=== PATIENT | male | born 1960 ===

== ENCOUNTER 2018-07-29 08:45 | Emergency (ER) | payer MEDICAID, OTHER ==
[2018-07-29] MEDS ORDERED: Multivitamin (MVI) 10 ML, Thiamine 100 MG, Folic Acid 1 MG in Dextrose 5%/0.45% NS 1,00... IV ONE ×2 (09:41→11:30)
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
[2018-07-29 10:29] LABS: SQUAMOUS EPITHIAL < 1 /hpf (0-5); URINE BILIRUBIN NEGATIVE (NEGATIVE); URINE BLOOD SMALL (NEGATIVE); URINE CLARITY CLEAR (Clear); URINE COLOR YELLOW (YELLOW); URINE GLUCOSE (UA) NEG (Normal); URINE LEUKOCYTE ESTERASE NEG Leu/uL (Negative); URINE PROTEIN NEGATIVE (NEGATIVE); URINE UROBILINOGEN 0.2-1.0 mg/dL (0.2-1.0)
[2018-07-29 10:31] LABS: BASO % 0.9 % (0.0-2.0); EOS # 0.2 K/uL (0.0-0.7); LYMPH # 0.6 K/uL (1.0-4.3); LYMPH % 15.5 % (20.0-40.0); MEAN CELL VOLUME 98.3 fl (80.0-94.0); MEAN CORPUSCULAR HEMOGLOBIN 32.3 pg (27.0-31.0); MEAN CORPUSCULAR HGB CONC 32.9 g/dL (33.0-37.0); MEAN PLATELET VOLUME 9.3 fl (7.2-11.7); MONO # 0.5 K/uL (0.0-0.8); MONO % 11.1 % (0.0-10.0); NEUT # 2.8 K/uL (1.8-7.0); NEUT % 68.5 % (50.0-75.0); NRBC % 0.3 % (0.0-0.0); RBC 4.65 Mil/uL (4.40-5.90); RED CELL DISTRIBUTION WIDTH 13.7 % (11.5-14.5); WHITE BLOOD COUNT 4.2 K/uL (4.8-10.8)
[2018-07-29 10:58] LABS: BARBITURATES, UR NEGATIVE (NEGATIVE); BENZODIAZEPINES, UR NEGATIVE (NEGATIVE); OPIATES, UR NEGATIVE (NEGATIVE); PHENCYCLIDINE, UR NEGATIVE (NEGATIVE)
[2018-07-29 11:07] LABS: INR 0.9; PROTHROMBIN TIME 10.5 Seconds (9.8-13.1)
[2018-07-29 11:10] LABS: PARTIAL THROMBOPLASTIN TIME 31.9 Seconds (25.6-37.1)
[2018-07-29 11:22] LABS: ALB/GLOB RATIO 1.2 (1.0-2.1); ALBUMIN 4.5 g/dL (3.5-5.0); ALT/SGPT 215 U/L (21-72); AST/SGOT 224 U/L (17-59); BLOOD UREA NITROGEN 15 mg/dl (9-20); CALCIUM 9.5 mg/dL (8.4-10.2); GFR NON-AFRICAN AMERICAN > 60
[2018-07-29 11:24] LABS: ACETAMINOPHEN < 10.0 ug/ml (10.0-30.0)
[2018-07-29 11:26] LABS: SALICYLATE < 1.0 mg/dl
[2018-07-29 13:21] VITALS: RESP 18
[2018-07-29 13:32] VITALS: BP 160/81; PULSE 74; TEMP 98.8; O2SAT 97
== END 2018-07-29 13:20 | disposition home or self-care (01) ==
LOC: H.ER 08:45
DX: F10.10 Alcohol abuse, uncomplicated (principal); R51 Headache
CPT/HCPCS: 80053; 80320; 80324; 80329; 80345; 80346; 80349; 80353; 80358; 80361; 81003; 83992; 85025; 85610; 85730; 96360; 99285; J3411; J7042

== ENCOUNTER 2019-02-08 12:30 | Inpatient (IN) | payer MEDICAID, OTHER ==
[2019-02-08] MEDS ORDERED: Sodium Chloride 0.9% 1,000 ML IV STA ×3 (13:01→17:04)
[2019-02-08 13:39] LABS: BASO % 0.4 % (0.0-2.0); EOS % 0.1 % (0.0-4.0); HEMOGLOBIN 14.7 g/dL (12.0-18.0); LYMPH # 0.6 K/uL (1.0-4.3); LYMPH % 5.3 % (20.0-40.0); MEAN CELL VOLUME 89.7 fl (80.0-94.0); MEAN CORPUSCULAR HEMOGLOBIN 30.7 pg (27.0-31.0); MEAN CORPUSCULAR HGB CONC 34.2 g/dL (33.0-37.0); MEAN PLATELET VOLUME 8.4 fl (7.2-11.7); MONO # 0.4 K/uL (0.0-0.8); MONO % 4.1 % (0.0-10.0); NEUT # 9.9 K/uL (1.8-7.0); NEUT % 90.1 % (50.0-75.0); PLATELET COUNT 134 K/uL (130-400); RBC 4.81 Mil/uL (4.40-5.90); RED CELL DISTRIBUTION WIDTH 13.8 % (11.5-14.5); WHITE BLOOD COUNT 10.9 K/uL (4.8-10.8)
[2019-02-08 13:45] LABS: INR 1.1; PROTHROMBIN TIME 12.1 Seconds (9.8-13.1)
[2019-02-08 13:48] LABS: PARTIAL THROMBOPLASTIN TIME 36.6 Seconds (25.6-37.1)
[2019-02-08 13:51] LABS: ALB/GLOB RATIO 1.1 (1.0-2.1); ALBUMIN 4.5 g/dL (3.5-5.0); ALT/SGPT 12 U/L (21-72); AST/SGOT 35 U/L (17-59); BLOOD UREA NITROGEN 19 mg/dl (9-20); CALCIUM 9.3 mg/dL (8.4-10.2); GFR NON-AFRICAN AMERICAN > 60; LIPASE 77 U/L (23-300)
--- NOTE | 2019-02-08 13:59 | CT ---
Date of service: 02/08/2019 PROCEDURE: CT HEAD WITHOUT CONTRAST. HISTORY: headache COMPARISON: None available. TECHNIQUE: Axial computed tomography images were obtained through the head/brain without intravenous contrast. Radiation dose: Total exam DLP = 807.26 mGy-cm. This CT exam was performed using one or more of the following dose reduction techniques: Automated exposure control, adjustment of the mA and/or kV according to patient size, and/or use of iterative reconstruction technique. FINDINGS: HEMORRHAGE: No intracranial hemorrhage. BRAIN: Normal negro-white matter differentiation and density are appreciated throughout the cerebrum and cerebellum with the brainstem appearing unremarkable as well. There is no mass effect. There is no suspicious extra-axial fluid collection and the midline brain anatomy appears diffusely unremarkable. VENTRICLES: Unremarkable. No hydrocephalus. CALVARIUM: Unremarkable. PARANASAL SINUSES: Unremarkable as visualized. No significant inflammatory changes. MASTOID AIR CELLS: Unremarkable as visualized. No inflammatory changes. OTHER FINDINGS: None. IMPRESSION: Unremarkable unenhanced head CT.
[2019-02-08 14:01] LABS: BANDS 3 % (0-2); LYMPHOCYTE 7 % (20-50); MONOCYTE 5 % (0-10); NEUTROPHIL 85 % (42-75); PLATELET ESTIMATE NORMAL (NORMAL); TOTAL CELLS COUNTED 100
[2019-02-08 14:02] LABS: ACETAMINOPHEN < 10.0 ug/ml (10.0-30.0); SALICYLATE < 1.0 mg/dl
--- NOTE | 2019-02-08 14:19 | ED PDOC ---
HPI: Headache Time Seen by Provider: 02/08/19 13:00 Chief Complaint (Nursing): Headache Chief Complaint (Provider): Headache History Per: Patient, Poultry Vaccinator (geotechnical engineerlydia Bal) History/Exam Limitations: no limitations Onset/Duration Of Symptoms: Days Current Symptoms Are (Timing): Still Present Additional Complaint(s): 58 y/o male presents to the ED for evaluation of three days worsening facial pain and redness as well as 7 months of a headache. Patient states that with the facial swelling and redness, the headache has been acutely worsening. Patient notes that over the last 16 days, he has taken 4 bottles of Tylenol. Patient is unsure how many mg per pill but states there were 24 pills per bottle. Patient reports of having stopped drinking about 5 days ago. Patient states pain and headache are associated with generalized weakness and feeling warm. Patient did not take his temperature. Otherwise, patient denies nausea and vomiting. History obtained with geotechnical engineer Mally. PMD: no provider Past Medical History Reviewed: Historical Data, Nursing Documentation, Vital Signs Vital Signs: Last Vital Signs Temp 102.9 F H 02/08/19 12:37 Pulse 130 H 02/08/19 12:37 Resp 18 02/08/19 12:37 BP 138/94 H 02/08/19 12:37 Pulse Ox 98 02/08/19 12:37 Primary Care Provider: Procedure,Nonphys - Medical History PMH: Denies: Chronic Kidney Disease - Family History Family History: States: Unknown Family Hx - Home Medications Home Medications: Ambulatory Orders Medication Instructions Recorded chlordiazePOXIDE [Chlordiazepoxide 25 mg PO QID #20 cap 07/29/18 HCl] - Allergies Allergies/Adverse Reactions: Allergies Allergy/AdvReac Type Severity Reaction Status Date / Time No Known Allergies Allergy Verified 07/29/18 09:15 Review of Systems ROS Statement: Except As Marked, All Systems Reviewed And Found Negative Constitutional: Positive for: Fever, Weakness, Other (facial pain and swelling) Gastrointestinal: Negative for: Nausea, Vomiting Skin: Positive for: Other (facial redness) Physical Exam - Reviewed Nursing Documentation Reviewed: Yes Vital Signs Reviewed: Yes - Physical Exam Appears: Positive for: No Acute Distress Head Exam: Negative for: NORMAL INSPECTION (Entire face is erythematous and swollen with no postules or drainage) Skin: Positive for: Warm, Dry. Negative for: Normal Color (diffuse swelling and redness to the face without vesicles, blisters, or drainage.) Eye Exam: Positive for: Normal appearance, EOMI, PERRL ENT: Positive for: Normal ENT Inspection Neck: Positive for: Normal, Painless ROM, Supple Cardiovascular/Chest: Positive for: Regular Rate, Rhythm. Negative for: Murmur Respiratory: Positive for: Normal Breath Sounds. Negative for: Respiratory Distress Gastrointestinal/Abdominal: Positive for: Tenderness (RUQ Tenderness) Back: Positive for: Normal Inspection. Negative for: L CVA Tenderness, R CVA Tenderness, Vertebral Tenderness Extremity: Positive for: Normal ROM. Negative for: Pedal Edema, Deformity Neurological/Psych: Positive for: Awake, Alert, Oriented (x3), poultry processor II-XII (intact) - Laboratory Results Result Diagrams: 02/09/19 04:25 02/10/19 11:15 Lab Results: PT 12.1 Seconds (9.8-13.1) 02/08/19 13:34 INR 1.1 02/08/19 13:34 APTT 36.6 Seconds (25.6-37.1) 02/08/19 13:34 Total Bilirubin 1.5 mg/dl (0.2-1.3) H 02/08/19 13:34 AST 35 U/L (17-59) 02/08/19 13:34 ALT 12 U/L (21-72) L D 02/08/19 13:34 Alkaline Phosphatase 94 U/L (38-126) 02/08/19 13:34 Total Protein 8.5 G/DL (6.3-8.2) H 02/08/19 13:34 Albumin 4.5 g/dL (3.5-5.0) 02/08/19 13:34 Globulin 4.1 gm/dL (2.2-3.9) H 02/08/19 13:34 Albumin/Globulin Ratio 1.1 (1.0-2.1) 02/08/19 13:34 Lipase 77 U/L (23-300) 02/08/19 13:34 - ECG O2 Sat by Pulse Oximetry: 98 (RA) Pulse Ox Interpretation: Normal Medical Decision Making Medical Decision Making: Time: 1319 A/P: Workup for cellulitis/erysipelas, Worsening headache, possible acetaminophen overdose for reported number of Tylenol pills and RUQ tenderness. -- IV fluids -- Labs, EKG -- Re-assess patient. -- CT Head w/o Contrast -- EKG -- Acetaminophen -- Alcohol Serum -- CMP -- Lipase -- Magnesium -- Phosphorus -- Salicylate -- CBC with Differentials -- PTT -- Prothrombin Time -- CXR Portable -- Sodium Chloride IV 1000 mls/hr -- Reglan 10 mg IVP Time: 1356 CT RESULTS Date of service: 02/08/2019 PROCEDURE: CT HEAD WITHOUT CONTRAST. HISTORY: headache COMPARISON: None available. TECHNIQUE: Axial computed tomography images were obtained through the head/brain without intravenous contrast. Radiation dose: Total exam DLP = 807.26 mGy-cm. This CT exam was performed using one or more of the following dose reduction techniques: Automated exposure control, adjustment of the mA and/or kV according to patient size, and/or use of iterative reconstruction technique. FINDINGS: HEMORRHAGE: No intracranial hemorrhage. BRAIN: Normal negro-white matter differentiation and density are appreciated throughout the cerebrum and cerebellum with the brainstem appearing unremarkable as well. There is no mass effect. There is no suspicious extra-axial fluid collection and the midline brain anatomy appears diffusely unremarkable. VENTRICLES: Unremarkable. No hydrocephalus. CALVARIUM: Unremarkable. PARANASAL SINUSES: Unremarkable as visualized. No significant inflammatory changes. MASTOID AIR CELLS: Unremarkable as visualized. No inflammatory changes. OTHER FINDINGS: None. IMPRESSION: Unremarkable unenhanced head CT. Time: 1719 -- LFTs within normal limits. Acetaminophen level is undetectable. Low suspicion for acetaminophen overdose. Brain CT shows no abnormalities. WBC within normal limits. Vital signs improved. Lactate WNL. However, patient still mildly tachycardic. Will admit for sepsis/cellulitis. Spoke with Dr. Valles who accepted the patient to his service. Scribe Attestation: Documented by Melanie Khan, acting as a scribe for Amber Irizarry MD. Provider Scribe Attestation: All medical record entries made by the Scribe were at my direction and personally dictated by me. I have reviewed the chart and agree that the record accurately reflects my personal performance of the history, physical exam, medical decision making, and the department course for this patient. I have also personally directed, reviewed, and agree with the discharge instructions and disposition. Disposition - Clinical Impression Clinical Impression: Facial cellulitis - Patient ED Disposition Is Patient to be Admitted: Yes - Disposition Disposition Time: 17:19 Condition: STABLE
[2019-02-08] MEDS ORDERED: Clindamycin 600mg/50ml D5W 600 MG/50 ML VIAL IVPB STA (14:39)
--- NOTE | 2019-02-08 17:25 | CARD ---
APPROVED REPORT Date of service: 02/08/2019 EKG Measurement Heart [id number] <Conclusion> Sinus tachycardia Voltage criteria for left ventricular hypertrophy Abnormal ECG
[2019-02-08 17:45] LABS: VENOUS BLOOD GAS BASE EXCESS -0.4 mmol/L (0.0-2.0); VENOUS BLOOD GAS PCO2 33 mmHg (40-60); VENOUS BLOOD GAS PO2 55 mm/Hg (30-55); VENOUS BLOOD PH 7.45 (7.32-7.43)
--- NOTE | 2019-02-08 18:35 | RAD ---
Date of service: 02/08/2019 HISTORY: possible admission COMPARISON: No prior. TECHNIQUE: 1 view obtained. FINDINGS: LUNGS: No active pulmonary disease. PLEURA: No significant pleural effusion identified, no pneumothorax apparent. CARDIOVASCULAR: No aortic atherosclerotic calcification present. Normal cardiac size. No pulmonary vascular congestion. OSSEOUS STRUCTURES: No significant abnormalities. VISUALIZED UPPER ABDOMEN: Normal. OTHER FINDINGS: None. IMPRESSION: No interval acute cardiopulmonary disease appreciated.
[2019-02-08 20:18] LABS: URINE BILIRUBIN SMALL (NEGATIVE); URINE CLARITY SLIGHT-CLOUDY (Clear); URINE COLOR YELLOW (YELLOW); URINE GLUCOSE (UA) NEGATIVE (NEGATIVE)
[2019-02-08 20:19] LABS: URINE BLOOD MODERATE (NEGATIVE)
[2019-02-08 20:20] LABS: URINE LEUKOCYTE ESTERASE NEGATIVE Leu/uL (Negative); URINE PROTEIN >=300 mg/dL (NEGATIVE)
[2019-02-08 20:21] LABS: URINE BACTERIA RARE (<OCC)
[2019-02-09] MEDS: Clindamycin 600mg/50ml NS 600 MG/50 ML BAG IVPB SCH ×3 (01:07→16:01)
[2019-02-09 05:54] LABS: HEMOGLOBIN 12.8 g/dL (12.0-18.0); MEAN CORPUSCULAR HEMOGLOBIN 30.4 pg (27.0-31.0); MEAN CORPUSCULAR HGB CONC 34.2 g/dL (33.0-37.0); RBC 4.21 Mil/uL (4.40-5.90); RED CELL DISTRIBUTION WIDTH 14.2 % (11.5-14.5); WHITE BLOOD COUNT 5.9 K/uL (4.8-10.8)
[2019-02-09] MEDS ORDERED: Pneumococcal 23-Valent Vaccine IM ONE (06:00)
[2019-02-09] MEDS: Petrolatum UD PAK TOP SCH (09:17)
--- NOTE | 2019-02-09 10:38 | CP.PCM.CON ---
History of Present Illness - History of Present Illness History of Present Illness: severe left facial Zoster + cellulitis add Acyclovir Isolation 58 y/o male presents to the ED for evaluation of three days worsening facial pain and redness SH - ivdu FH N/C Review of Systems - Review of Systems All systems: reviewed and no additional remarkable complaints except - Constitutional Constitutional: As Per HPI - EENT Eyes: absent: As Per HPI, Blind Spots, Blurred Vision, Change in Vision, Decreased Night Vision, Diplopia, Discharge, Dry Eye, Exophthalmos, Floaters, Irritation, Itchy Eyes, Loss of Peripheral Vision, Pain, Photophobia, Requires Corrective Lenses, Sees Flashes, Spots in Vision, Tunnel Vision, Other Visual Disturbances, Loss of Vision, Other Ears: absent: As Per HPI, Decreased Hearing, Ear Discharge, Ear Pain, Tinnitus, Abnormal Hearing, Disequilibrium, Dizziness, Other Nose/Mouth/Throat: absent: As Per HPI, Epistaxis, Nasal Congestion, Nasal Discharge, Nasal Obstruction, Nasal Trauma, Nose Pain, Post Nasal Drip, Sinus Pain, Sinus Pressure, Bleeding Gums, Change in Voice, Dental Pain, Dry Mouth, Dysphagia, Halitosis, Hoarsness, Lip Swelling, Mouth Lesions, Mouth Pain, Odynophagia, Sore Throat, Throat Swelling, Tongue Swelling, Facial Pain, Neck Pain, Neck Mass, Other - Cardiovascular Cardiovascular: absent: As Per HPI, Acrocyanosis, Chest Pain, Chest Pain at Rest, Chest Pain with Activity, Claudication, Diaphoresis, Dyspnea, Dyspnea on Exertion, Edema, Irregular Heart Rhythm, Pain Radiating to Arm/Neck/Jaw, Leg Edema, Leg Ulcers, Lightheadedness, Orthopnea, Palpitations, Paroxysmal Nocturnal Dyspnea, Pedal Edema, Radiating Pain, Rapid Heart Rate, Slow Heart Rate, Syncope, Other - Respiratory Respiratory: absent: As Per HPI, Cough, Dyspnea, Hemoptysis, Dyspnea on Exertion, Wheezing, Snoring, Stridor, Pain on Inspiration, Chest Congestion, Excessive Mucous Production, Change in Mucous Color, Pain with Coughing, Other - Gastrointestinal Gastrointestinal: absent: As Per HPI, Abdominal Pain, Belching, Bloating, Change in Bowel Habits, Change in Stool Character, Coffee Ground Emesis, Constipation, Cramping, Diarrhea, Dyspepsia, Dysphagia, Early Satiety, Excessive Flatus, Fecal Incontinence, Heartburn, Hematemesis, Hematochezia, Loose Stools, Melena, Nausea, Odynophagia, Temesmus, Vomiting, Other - Genitourinary Genitourinary: absent: As Per HPI, Change in Urinary Stream, Difficulty Urinating, Dysuria, Flank Pain, Hematuria, Pyuria, Nocturia, Urinary Incontinence, Urinary Frequency, Urinary Hesitance, Urinary Urgency, Voiding Freq/Small Amts, Freq UTI, Hx Renal/Bladder Calculi, Hx /Renal Surgery, Bladder Distension, Other - Musculoskeletal Musculoskeletal: absent: As Per HPI, Abnormal Gait, Arthralgias, Atrophy, Back Pain, Deformity, Joint Swelling, Limited Range of Motion, Loss of Height, Muscle Cramps, Muscle Weakness, Myalgias, Neck Pain, Numbness, Radiating Pain into Limb, Stiffness, Tingling, Other - Integumentary Integumentary: As Per HPI - Neurological Neurological: absent: As Per HPI, Abnormal Gait, Abnormal Hearing, Abnormal Movements, Abnormal Speech, Behavioral Changes, Burning Sensations, Confusion, Convulsions, Disequilibrium, Dizziness, Numbness, Focal Weakness, Frequent Falls, Headaches, Lack of Coordination, Loss of Vision, Memory Loss, Paresthesias, Radicular Pain, Restless Legs, Sensory Deficit, Syncope, Tingling, Tremor, Vertigo, Weakness, Other Visual Disturbances, Other - Psychiatric Psychiatric: As Per HPI - Endocrine Endocrine: As Per HPI - Hematologic/Lymphatic Hematologic: As Per HPI Past Patient History - Past Social History Smoking Status: Light Smoker < 10 Cigarettes Daily - CARDIAC Hx Cardiac Disorders: No - PULMONARY Hx Respiratory Disorders: No Hx Lung Cancer: Yes (in 1998) - NEUROLOGICAL Hx Neurological Disorder: No - HEENT Hx HEENT Problems: No - RENAL Hx Chronic Kidney Disease: No - ENDOCRINE/METABOLIC Hx Endocrine Disorders: No - HEMATOLOGICAL/ONCOLOGICAL Hx Blood Disorders: No - INTEGUMENTARY Hx Dermatological Problems: No - MUSCULOSKELETAL/RHEUMATOLOGICAL Hx Falls: No Hx Fractures: Yes (right foot) - GASTROINTESTINAL Hx Gastrointestinal Disorders: No - GENITOURINARY/GYNECOLOGICAL Hx Genitourinary Disorders: No - PSYCHIATRIC Hx Psychophysiologic Disorder: No Hx Substance Use: No (Quit 19 years ago) - SURGICAL HISTORY Hx Surgeries: Yes Other/Comment: Lung Surgery. Right lower leg fracture. - ANESTHESIA Hx Anesthesia: Yes Hx Anesthesia Reactions: No Hx Malignant Hyperthermia: No Meds Allergies/Adverse Reactions: Allergies Allergy/AdvReac Type Severity Reaction Status Date / Time No Known Allergies Allergy Verified 07/29/18 09:15 - Medications Medications: Current Medications Emollient Ointment (Vaseline Oint) 1 pkt TOP DAILY JACKY Last Admin: 02/09/19 09:17 Dose: 1 pkt Clindamycin Phosphate (Cleocin 600mg/50ml Ns) 600 mg in 50 mls @ 50 mls/hr IVPB Q8 JACKY; Protocol Last Admin: 02/09/19 09:15 Dose: 50 mls/hr Vancomycin HCl 1 gm/ Sodium (Chloride) 250 mls @ 166.667 mls/hr IVPB Q12 JACKY; Protocol Last Admin: 02/09/19 09:16 Dose: 166.667 mls/hr Ibuprofen (Motrin Tab) 800 mg PO Q8 PRN PRN Reason: fever >100.4 and pain Last Admin: 02/08/19 21:09 Dose: 800 mg Physical Exam - Constitutional Appears: Non-toxic, Chronically Ill - Head Exam Head Exam: ATRAUMATIC, NORMOCEPHALIC Additional comments: facial erythema vesicles left fave - Eye Exam Eye Exam: EOMI, Normal appearance, PERRL Pupil Exam: NORMAL ACCOMODATION, PERRL - ENT Exam ENT Exam: Mucous Membranes Moist, Normal Exam - Neck Exam Neck exam: Positive for: Normal Inspection - Respiratory Exam Respiratory Exam: Clear to Auscultation Bilateral, NORMAL BREATHING PATTERN - Cardiovascular Exam Cardiovascular Exam: REGULAR RHYTHM - GI/Abdominal Exam GI & Abdominal Exam: Normal Bowel Sounds, Soft. absent: Tenderness - Rectal Exam Rectal Exam: NORMAL INSPECTION - Exam Exam: Circumcision, NORMAL INSPECTION External exam: NORMAL EXTERNAL EXAM Speculum exam: NORMAL SPECULUM EXAM Bimanual exam: NORMAL BIMANUAL EXAM - Extremities Exam Extremities exam: Positive for: normal inspection - Back Exam Back exam: NORMAL INSPECTION - Neurological Exam Neurological exam: Alert, CN II-XII Intact, Normal Gait, Oriented x3, Reflexes Normal - Psychiatric Exam Psychiatric exam: Normal Affect, Normal Mood - Skin Skin Exam: Dry, Erythema, Intact, Rash, Vesicles Results - Vital Signs Recent Vital Signs: Last Vital Signs Temp 98.7 F 02/09/19 07:54 Pulse 89 02/09/19 07:54 Resp 18 02/09/19 07:54 BP 130/87 02/09/19 07:54 Pulse Ox 98 02/09/19 07:54 - Labs Result Diagrams: 02/09/19 04:25 02/08/19 13:34 Labs: Laboratory Results - last 24 hr 02/08/19 02/08/19 02/08/19 13:34 13:34 13:34 WBC 10.9 H D RBC 4.81 Hgb 14.7 Hct 43.1 MCV 89.7 D MCH 30.7 MCHC 34.2 RDW 13.8 Plt Count 134 MPV 8.4 Neut % (Auto) 90.1 H Lymph % (Auto) 5.3 L [place] % (Auto) 4.1 Eos % (Auto) 0.1 Baso % (Auto) 0.4 Neut # (Auto) 9.9 H Lymph # (Auto) 0.6 L [place] # (Auto) 0.4 Eos # (Auto) 0.0 Baso # (Auto) 0.0 Neutrophils % (Manual) 85 H Band Neutrophils % 3 H Lymphocytes % (Manual) 7 L Monocytes % (Manual) 5 Platelet Estimate Normal RBC Morphology Normal ESR PT 12.1 INR 1.1 APTT 36.6 pO2 VBG pH VBG pCO2 VBG HCO3 VBG Total CO2 VBG O2 Sat (Calc) VBG Base Excess VBG Potassium Glucose Lactate FiO2 Sodium 133 Potassium 4.3 Chloride 93 L Carbon Dioxide 26 Anion Gap 18 BUN 19 Creatinine 1.0 Est GFR ( Amer) > 60 Est GFR (Non-Af Amer) > 60 Random Glucose 151 H Calcium 9.3 Phosphorus 3.3 Magnesium 2.0 Total Bilirubin 1.5 H AST 35 ALT 12 L D Alkaline Phosphatase 94 Total Protein 8.5 H Albumin 4.5 Globulin 4.1 H Albumin/Globulin Ratio 1.1 Lipase 77 Venous Blood Potassium Urine Color Urine Clarity Urine pH Ur Specific [place] Urine Protein Urine Glucose (UA) Urine Ketones Urine Blood Urine Nitrate Urine Bilirubin Urine Urobilinogen Ur Leukocyte Esterase Urine RBC (Auto) Urine Microscopic WBC Urine Bacteria Salicylates Acetaminophen Alcohol, Quantitative < 10 02/08/19 02/08/19 02/08/19 13:34 17:34 17:36 WBC RBC Hgb Hct MCV MCH MCHC RDW Plt Count MPV Neut % (Auto) Lymph % (Auto) [place] % (Auto) Eos % (Auto) Baso % (Auto) Neut # (Auto) Lymph # (Auto) [place] # (Auto) Eos # (Auto) Baso # (Auto) Neutrophils % (Manual) Band Neutrophils % Lymphocytes % (Manual) Monocytes % (Manual) Platelet Estimate RBC Morphology ESR PT INR APTT pO2 55 VBG pH 7.45 H VBG pCO2 33 L VBG HCO3 24.4 VBG Total CO2 23.9 VBG O2 Sat (Calc) 95.0 H VBG Base Excess -0.4 L VBG Potassium 3.8 Glucose 122 H Lactate 0.8 FiO2 21.0 Sodium 131.0 L Potassium Chloride 102.0 Carbon Dioxide Anion Gap BUN Creatinine Est GFR ( Amer) Est GFR (Non-Af Amer) Random Glucose Calcium Phosphorus Magnesium Total Bilirubin AST ALT Alkaline Phosphatase Total Protein Albumin Globulin Albumin/Globulin Ratio Lipase Venous Blood Potassium 3.8 Urine Color Urine Clarity Urine pH Ur Specific [place] Urine Protein Urine Glucose (UA) Urine Ketones Urine Blood Urine Nitrate Urine Bilirubin Urine Urobilinogen Ur Leukocyte Esterase Urine RBC (Auto) Urine Microscopic WBC Urine Bacteria Salicylates < 1.0 Acetaminophen < 10.0 L < 10.0 L Alcohol, Quantitative 02/08/19 02/09/19 19:35 04:25 WBC 5.9 RBC 4.21 L Hgb 12.8 Hct 37.5 MCV 89.0 MCH 30.4 MCHC 34.2 RDW 14.2 Plt Count 116 L MPV Neut % (Auto) Lymph % (Auto) [place] % (Auto) Eos % (Auto) Baso % (Auto) Neut # (Auto) Lymph # (Auto) [place] # (Auto) Eos # (Auto) Baso # (Auto) Neutrophils % (Manual) Band Neutrophils % Lymphocytes % (Manual) Monocytes % (Manual) Platelet Estimate RBC Morphology ESR 81 H PT INR APTT pO2 VBG pH VBG pCO2 VBG HCO3 VBG Total CO2 VBG O2 Sat (Calc) VBG Base Excess VBG Potassium Glucose Lactate FiO2 Sodium Potassium Chloride Carbon Dioxide Anion Gap BUN Creatinine Est GFR ( Amer) Est GFR (Non-Af Amer) Random Glucose Calcium Phosphorus Magnesium Total Bilirubin AST ALT Alkaline Phosphatase Total Protein Albumin Globulin Albumin/Globulin Ratio Lipase Venous Blood Potassium Urine Color Yellow Urine Clarity Slight-cloudy Urine pH 6.0 Ur Specific [place] >= 1.030 Urine Protein >=300 Urine Glucose (UA) Negative Urine Ketones 15 Urine Blood Moderate Urine Nitrate Negative Urine Bilirubin Small Urine Urobilinogen 1.0 Ur Leukocyte Esterase Negative Urine RBC (Auto) 15 H Urine Microscopic WBC 3 Urine Bacteria Rare Salicylates Acetaminophen Alcohol, Quantitative Assessment & Plan (1) Facial cellulitis Status: Acute (2) Shingles outbreak Status: Acute (3) Alcohol abuse Status: Acute - Assessment and Plan (Free Text) Assessment: add acyclovir cont IV rx
[2019-02-10] MEDS: Clindamycin 600mg/50ml NS 600 MG/50 ML BAG IVPB SCH ×3 (01:29→17:03)
--- NOTE | 2019-02-10 06:55 | CP.PCM.HP ---
History of Present Illness - History of Present Illness History of Present Illness: This is a 58 y/o male admitted through the ER last night for facial pain for 3 days and noted face to be very erythematous holli on the left side of the face. Patient claims that sx started as headaches and facial pain which worsened in the past three days. He has no significant medical hx.He denies any DM 2. Initial work up showed sl ight elevation of WBC. Present on Admission - Present on Admission Any Indicators Present on Admission: No History of DVT/PE: No History of Uncontrolled Diabetes: No Urinary Catheter: No Decubitus Ulcer Present: No Review of Systems - Constitutional Constitutional: Headache Past Patient History - Past Social History Smoking Status: Light Smoker < 10 Cigarettes Daily - CARDIAC Hx Cardiac Disorders: No - PULMONARY Hx Respiratory Disorders: No Hx Lung Cancer: Yes (in 1998) - NEUROLOGICAL Hx Neurological Disorder: No - HEENT Hx HEENT Problems: No - RENAL Hx Chronic Kidney Disease: No - ENDOCRINE/METABOLIC Hx Endocrine Disorders: No - HEMATOLOGICAL/ONCOLOGICAL Hx Blood Disorders: No - INTEGUMENTARY Hx Dermatological Problems: No - MUSCULOSKELETAL/RHEUMATOLOGICAL Hx Falls: No Hx Fractures: Yes (right foot) - GASTROINTESTINAL Hx Gastrointestinal Disorders: No - GENITOURINARY/GYNECOLOGICAL Hx Genitourinary Disorders: No - PSYCHIATRIC Hx Psychophysiologic Disorder: No Hx Substance Use: No (Quit 19 years ago) - SURGICAL HISTORY Hx Surgeries: Yes Other/Comment: Lung Surgery. Right lower leg fracture. - ANESTHESIA Hx Anesthesia: Yes Hx Anesthesia Reactions: No Hx Malignant Hyperthermia: No Meds Allergies/Adverse Reactions: Allergies Allergy/AdvReac Type Severity Reaction Status Date / Time No Known Allergies Allergy Verified 07/29/18 09:15 Physical Exam - Constitutional Appears: Toxic - Head Exam Additional comments: erythematous face with some vesicles on the left side - ENT Exam ENT Exam: Normal Oropharynx - Neck Exam Neck exam: Positive for: Normal Inspection - Respiratory Exam Respiratory Exam: Clear to Auscultation Bilateral, NORMAL BREATHING PATTERN - Cardiovascular Exam Cardiovascular Exam: REGULAR RHYTHM - GI/Abdominal Exam GI & Abdominal Exam: Normal Bowel Sounds - Neurological Exam Neurological exam: Alert, CN II-XII Intact, Oriented x3 - Psychiatric Exam Psychiatric exam: Anxious Results - Vital Signs Recent Vital Signs: Last Vital Signs Temp 98.4 F 02/10/19 04:26 Pulse 71 02/10/19 04:26 Resp 18 02/10/19 04:26 BP 135/79 02/10/19 04:26 Pulse Ox 96 02/10/19 04:26 - Labs Result Diagrams: 02/09/19 04:25 02/08/19 13:34 Labs: Laboratory Results - last 24 hr 02/09/19 04:25 ESR 81 H Assessment & Plan (1) Shingles outbreak Status: Acute (2) Headache Status: Acute (3) Hyperglycemia Status: Acute - Assessment and Plan (Free Text) Plan: Pain meds IV acyclovir ID consult isolation check Hgb a1c, very common for DM patient to get shingles
[2019-02-10] MEDS: Petrolatum UD PAK TOP SCH (09:59)
[2019-02-10 12:04] LABS: BLOOD UREA NITROGEN 13 mg/dl (9-20); CALCIUM 8.8 mg/dL (8.4-10.2); GFR NON-AFRICAN AMERICAN > 60
--- NOTE | 2019-02-10 17:13 | CP.PCM.PN ---
Subjective - Date & Time of Evaluation Date of Evaluation: 02/10/19 Time of Evaluation: 08:00 - Subjective Subjective: 58 y/o male presents to the ED for evaluation of three days worsening facial pain and redness Has shingles and cellulitis SH - ivdu FH N/C Objective - Vital Signs/Intake and Output Vital Signs (last 24 hours): Temp Pulse Resp BP Pulse Ox 98.2 F 73 16 120/69 97 02/10/19 15:55 02/10/19 15:55 02/10/19 15:55 02/10/19 15:55 02/10/19 15:55 - Medications Medications: Current Medications Emollient Ointment (Vaseline Oint) 1 pkt TOP DAILY [facility] Last Admin: 02/10/19 09:59 Dose: 1 pkt Gabapentin (Neurontin) 100 mg PO TID [facility] Last Admin: 02/10/19 17:04 Dose: 100 mg Clindamycin Phosphate (Cleocin 600mg/50ml Ns) 600 mg in 50 mls @ 50 mls/hr IVPB Q8 [facility]; Protocol Last Admin: 02/10/19 17:03 Dose: 50 mls/hr Vancomycin HCl 1 gm/ Sodium (Chloride) 250 mls @ 166.667 mls/hr IVPB Q12 [facility]; Protocol Last Admin: 02/10/19 09:59 Dose: 166.667 mls/hr Acyclovir 600 mg/ Sodium (Chloride) 100 mls @ 100 mls/hr IVPB Q8 [facility]; Protocol Last Admin: 02/10/19 17:03 Dose: 100 mls/hr Ibuprofen (Motrin Tab) 800 mg PO Q8 PRN PRN Reason: fever >100.4 and pain Last Admin: 02/10/19 09:58 Dose: 800 mg - Labs Labs: 02/09/19 04:25 02/10/19 11:15 PT 12.1 Seconds (9.8-13.1) 02/08/19 13:34 INR 1.1 02/08/19 13:34 APTT 36.6 Seconds (25.6-37.1) 02/08/19 13:34 - Constitutional Appears: Non-toxic, Chronically Ill - Head Exam Head Exam: NORMOCEPHALIC - Eye Exam Eye Exam: absent: Scleral icterus Additional comments: + facial cellulitis +_ vesicles - ENT Exam ENT Exam: Mucous Membranes Dry - Neck Exam Neck Exam: absent: Lymphadenopathy - Respiratory Exam Respiratory Exam: Decreased Breath Sounds Assessment and Plan (1) Facial cellulitis Status: Acute (2) Shingles outbreak Status: Acute (3) Alcohol abuse Status: Acute - Assessment and Plan (Free Text) Assessment: cont iv antibiotics monitor creat
[2019-02-11] MEDS: Clindamycin 600mg/50ml NS 600 MG/50 ML BAG IVPB SCH ×3 (01:44→17:10)
[2019-02-11] MEDS ORDERED: Potassium Chloride 20 mEq ER Tab PO ONE (08:42)
--- NOTE | 2019-02-11 09:41 | CP.PCM.PCO ---
Assessment & Plan - Assessment and Plan (Free Text) Assessment: 58 yr old M admitted with facial cellulitis, shingles pt. will require 1 week of Acyclovir 600mg IV q8 Clindamycin 600mg q8 and Vancomycin 1gm iv q12 cont. to monitor for fevers, labs
[2019-02-11] MEDS: Petrolatum UD PAK TOP SCH (09:47)
--- NOTE | 2019-02-11 18:38 | CP.PCM.PN ---
Subjective - Date & Time of Evaluation Date of Evaluation: 02/11/19 Time of Evaluation: 11:00 - Subjective Subjective: patient seen and examined at bedside. Interim events noted No complaints offered at this time cellulitis improving denies cp/sob/fever/chills. available diagnostic data reviewed Review of Systems All systems: reviewed and no additional remarkable complaints except mentioned above Objective Vital Signs Stable - Constitutional Appears: Non-toxic, No Acute Distress Head Exam: NORMAL INSPECTION Eye Exam: Normal appearance Respiratory Exam: NORMAL BREATHING PATTERN Cardiovascular Exam: +S1, +S2 GI & Abdominal Exam: Soft Neurological Exam: Alert, Awake Psychiatric exam: Normal Affect, Normal Mood Skin Exam: Normal Color, Warm Assessment and Plan monitor vitals monitor labs Cont meds Cont tx consultants appreciated input IV abx to be continued, pending TCU rest of plan as ordered Objective - Vital Signs/Intake and Output Vital Signs (last 24 hours): Temp Pulse Resp BP Pulse Ox 98.2 F 65 16 143/75 97 02/11/19 16:38 02/11/19 16:38 02/11/19 16:38 02/11/19 16:38 02/11/19 16:38 Intake and Output: 02/11/19 02/11/19 06:59 18:59 Intake Total 1270 Balance 1270 - Medications Medications: Current Medications Emollient Ointment (Vaseline Oint) 1 pkt TOP DAILY [facility] Last Admin: 02/11/19 09:47 Dose: 1 pkt Gabapentin (Neurontin) 100 mg PO TID [facility] Last Admin: 02/11/19 17:11 Dose: 100 mg Clindamycin Phosphate (Cleocin 600mg/50ml Ns) 600 mg in 50 mls @ 50 mls/hr IVPB Q8 [facility]; Protocol Last Admin: 02/11/19 17:10 Dose: 50 mls/hr Vancomycin HCl 1 gm/ Sodium (Chloride) 250 mls @ 166.667 mls/hr IVPB Q12 [facility]; Protocol Last Admin: 02/11/19 09:49 Dose: 166.667 mls/hr Acyclovir 600 mg/ Sodium (Chloride) 100 mls @ 100 mls/hr IVPB Q8 [facility]; Protocol Last Admin: 02/11/19 17:10 Dose: 100 mls/hr Ibuprofen (Motrin Tab) 800 mg PO Q8 PRN PRN Reason: fever >100.4 and pain Last Admin: 02/11/19 04:34 Dose: 800 mg - Labs Labs: 02/09/19 04:25 02/10/19 11:15 PT 12.1 Seconds (9.8-13.1) 02/08/19 13:34 INR 1.1 02/08/19 13:34 APTT 36.6 Seconds (25.6-37.1) 02/08/19 13:34
--- NOTE | 2019-02-12 00:32 | CP.PCM.PN ---
Subjective - Date & Time of Evaluation Date of Evaluation: 02/10/19 Time of Evaluation: 10:00 - Subjective Subjective: Pt seen and assessed at bedside. On acyclovir, clindamycin, and vanco. Overnight fevers noted in chart. Review of Systems: Reviewed and no additional remarkable complaints except facial pain. Objective Appears: Non-toxic, no acute distress. Head Exam: NORMAL INSPECTION, normocephalic. Eye Exam: Normal eye inspection, EOMI, PERRLA. Respiratory Exam: NORMAL BREATHING PATTERN, breath sounds clear bilaterally. Cardiovascular Exam: +S1, +S2. RRR. GI & Abdominal Exam: Non-tender, Non-distended, bowel sounds present in all 4 quadrants. Neurological Exam: Alert, awake, oriented x3. Psychiatric exam: Normal mood. Calm and cooperative. Skin exam: warm, dry. Redness and swelling to face. Assessment/Impression/Plan: 1.) Herpes Zoster/Cellulitis -Continue Acyclovir, Clindamycin, Vanco IV. -consults input appreciated. -gabapentin + Ibuprofen PRN. -Monitor for additional s/s infection. Objective - Vital Signs/Intake and Output Vital Signs (last 24 hours): Temp Pulse Resp BP Pulse Ox 98.2 F 67 16 138/80 97 02/11/19 21:00 02/11/19 21:00 02/11/19 21:00 02/11/19 21:00 02/11/19 21:00 Intake and Output: 02/11/19 02/12/19 18:59 06:59 Intake Total 1270 Balance 1270 - Medications Medications: Current Medications Emollient Ointment (Vaseline Oint) 1 pkt TOP DAILY [facility] Last Admin: 02/11/19 09:47 Dose: 1 pkt Gabapentin (Neurontin) 100 mg PO TID [facility] Last Admin: 02/11/19 17:11 Dose: 100 mg Clindamycin Phosphate (Cleocin 600mg/50ml Ns) 600 mg in 50 mls @ 50 mls/hr IVPB Q8 [facility]; Protocol Last Admin: 02/11/19 17:10 Dose: 50 mls/hr Vancomycin HCl 1 gm/ Sodium (Chloride) 250 mls @ 166.667 mls/hr IVPB Q12 [facility]; Protocol Last Admin: 02/11/19 20:24 Dose: 166.667 mls/hr Acyclovir 600 mg/ Sodium (Chloride) 100 mls @ 100 mls/hr IVPB Q8 [facility]; Protocol Last Admin: 02/11/19 17:10 Dose: 100 mls/hr Ibuprofen (Motrin Tab) 800 mg PO Q8 PRN PRN Reason: fever >100.4 and pain Last Admin: 02/11/19 04:34 Dose: 800 mg - Labs Labs: 02/09/19 04:25 02/10/19 11:15 PT 12.1 Seconds (9.8-13.1) 02/08/19 13:34 INR 1.1 02/08/19 13:34 APTT 36.6 Seconds (25.6-37.1) 02/08/19 13:34 Assessment and Plan (1) Facial cellulitis Status: Acute (2) Shingles outbreak Status: Acute
[2019-02-12] MEDS: Clindamycin 600mg/50ml NS 600 MG/50 ML BAG IVPB SCH ×3 (01:08→16:23)
[2019-02-12 06:28] LABS: MEAN CELL VOLUME 89.9 fl (80.0-94.0); MEAN CORPUSCULAR HEMOGLOBIN 29.8 pg (27.0-31.0); MEAN CORPUSCULAR HGB CONC 33.2 g/dL (33.0-37.0); RBC 4.35 Mil/uL (4.40-5.90); RED CELL DISTRIBUTION WIDTH 13.8 % (11.5-14.5); WHITE BLOOD COUNT 4.6 K/uL (4.8-10.8)
[2019-02-12 06:39] LABS: BLOOD UREA NITROGEN 11 mg/dl (9-20); CALCIUM 8.8 mg/dL (8.4-10.2); GFR NON-AFRICAN AMERICAN > 60
[2019-02-12] MEDS: Petrolatum UD PAK TOP SCH (08:28)
[2019-02-12] MEDS ORDERED: Potassium Chloride 20 mEq/15 ml LIQ UD PO ONE (09:14)
--- NOTE | 2019-02-12 12:38 | CP.PCM.PN ---
Subjective - Date & Time of Evaluation Date of Evaluation: 02/12/19 Time of Evaluation: 09:00 - Subjective Subjective: less pain and swelling no fever Objective - Vital Signs/Intake and Output Vital Signs (last 24 hours): Temp Pulse Resp BP Pulse Ox 98.2 F 66 18 123/75 97 02/12/19 12:00 02/12/19 12:00 02/12/19 12:00 02/12/19 12:00 02/12/19 12:00 - Medications Medications: Current Medications Emollient Ointment (Vaseline Oint) 1 pkt TOP DAILY [facility] Last Admin: 02/12/19 08:28 Dose: 1 pkt Gabapentin (Neurontin) 100 mg PO TID [facility] Last Admin: 02/12/19 08:28 Dose: 100 mg Clindamycin Phosphate (Cleocin 600mg/50ml Ns) 600 mg in 50 mls @ 50 mls/hr IVPB Q8 [facility]; Protocol Last Admin: 02/12/19 11:23 Dose: 50 mls/hr Vancomycin HCl 1 gm/ Sodium (Chloride) 250 mls @ 166.667 mls/hr IVPB Q12 [facility]; Protocol Last Admin: 02/12/19 08:27 Dose: 166.667 mls/hr Acyclovir 600 mg/ Sodium (Chloride) 100 mls @ 100 mls/hr IVPB Q8 [facility]; Protocol Last Admin: 02/12/19 08:22 Dose: 100 mls/hr Ibuprofen (Motrin Tab) 800 mg PO Q8 PRN PRN Reason: fever >100.4 and pain Last Admin: 02/11/19 04:34 Dose: 800 mg - Labs Labs: 02/12/19 05:10 02/12/19 05:10 PT 12.1 Seconds (9.8-13.1) 02/08/19 13:34 INR 1.1 02/08/19 13:34 APTT 36.6 Seconds (25.6-37.1) 02/08/19 13:34 - Constitutional Appears: Non-toxic, Chronically Ill - Head Exam Head Exam: NORMOCEPHALIC - Eye Exam Eye Exam: absent: Scleral icterus - ENT Exam ENT Exam: Mucous Membranes Dry - Neck Exam Neck Exam: absent: Lymphadenopathy - Respiratory Exam Respiratory Exam: Decreased Breath Sounds - Cardiovascular Exam Cardiovascular Exam: REGULAR RHYTHM - GI/Abdominal Exam GI & Abdominal Exam: Distended, Soft - Rectal Exam Rectal Exam: Deferred - Exam Exam: NORMAL INSPECTION - Extremities Exam Extremities Exam: absent: Pedal Edema - Back Exam Back Exam: absent: CVA tenderness (L), CVA tenderness (R) - Neurological Exam Neurological Exam: Alert, Awake, Oriented x3 - Psychiatric Exam Psychiatric exam: Depressed - Skin Skin Exam: Dry, Erythema Assessment and Plan (1) Facial cellulitis Status: Acute (2) Shingles outbreak Status: Acute (3) Alcohol abuse Status: Acute - Assessment and Plan (Free Text) Assessment: improving on IV rx
[2019-02-13] MEDS: Clindamycin 600mg/50ml NS 600 MG/50 ML BAG IVPB SCH ×3 (01:31→16:14)
[2019-02-13] MEDS: Petrolatum UD PAK TOP SCH (08:56)
--- NOTE | 2019-02-13 14:34 | CP.PCM.PN ---
Subjective - Date & Time of Evaluation Date of Evaluation: 02/13/19 Time of Evaluation: 10:00 - Subjective Subjective: patient seen and examined at bedside. Interim events noted No complaints offered at this time cellulitis improving denies cp/sob/fever/chills. available diagnostic data reviewed Review of Systems All systems: reviewed and no additional remarkable complaints except mentioned above Objective Vital Signs Stable - Constitutional Appears: Non-toxic, No Acute Distress Head Exam: NORMAL INSPECTION Eye Exam: Normal appearance Respiratory Exam: NORMAL BREATHING PATTERN Cardiovascular Exam: +S1, +S2 GI & Abdominal Exam: Soft Neurological Exam: Alert, Awake Psychiatric exam: Normal Affect, Normal Mood Skin Exam: Normal Color, Warm Assessment and Plan monitor vitals monitor labs Cont meds Cont tx consultants appreciated input IV abx to be continued rest of plan as ordered Objective - Vital Signs/Intake and Output Vital Signs (last 24 hours): Temp Pulse Resp BP Pulse Ox 97.7 F 62 20 115/70 98 02/13/19 12:29 02/13/19 12:29 02/13/19 12:29 02/13/19 12:29 02/13/19 12:29 - Medications Medications: Current Medications Emollient Ointment (Vaseline Oint) 1 pkt TOP DAILY [facility] Last Admin: 02/13/19 08:56 Dose: 1 pkt Gabapentin (Neurontin) 100 mg PO TID [facility] Last Admin: 02/13/19 13:32 Dose: 100 mg Clindamycin Phosphate (Cleocin 600mg/50ml Ns) 600 mg in 50 mls @ 50 mls/hr IVPB Q8 [facility]; Protocol Last Admin: 02/13/19 08:56 Dose: 50 mls/hr Vancomycin HCl 1 gm/ Sodium (Chloride) 250 mls @ 166.667 mls/hr IVPB Q12 [facility]; Protocol Last Admin: 02/13/19 08:56 Dose: 166.667 mls/hr Acyclovir 600 mg/ Sodium (Chloride) 100 mls @ 100 mls/hr IVPB Q8 [facility]; Protocol Last Admin: 02/13/19 08:40 Dose: 100 mls/hr Ibuprofen (Motrin Tab) 800 mg PO Q8 PRN PRN Reason: fever >100.4 and pain Last Admin: 02/11/19 04:34 Dose: 800 mg - Labs Labs: 02/12/19 05:10 02/12/19 05:10 PT 12.1 Seconds (9.8-13.1) 02/08/19 13:34 INR 1.1 02/08/19 13:34 APTT 36.6 Seconds (25.6-37.1) 02/08/19 13:34 Assessment and Plan (1) Facial cellulitis Status: Acute (2) Shingles outbreak Status: Acute
[2019-02-14] MEDS: Clindamycin 600mg/50ml NS 600 MG/50 ML BAG IVPB SCH ×2 (00:18→09:16)
[2019-02-14] MEDS: Petrolatum UD PAK TOP SCH (09:17)
--- NOTE | 2019-02-14 12:28 | CP.PCM.PN ---
Subjective - Date & Time of Evaluation Date of Evaluation: 02/14/19 Time of Evaluation: 08:00 - Subjective Subjective: patient seen and evaluated in [facility] denies fever less swelling and redness of face no new lesion Objective - Vital Signs/Intake and Output Vital Signs (last 24 hours): Temp Pulse Resp BP Pulse Ox 98.2 F 70 20 138/50 L 98 02/14/19 08:16 02/14/19 08:16 02/14/19 08:16 02/14/19 08:16 02/14/19 08:16 - Medications Medications: Current Medications Emollient Ointment (Vaseline Oint) 1 pkt TOP DAILY [facility] Last Admin: 02/14/19 09:17 Dose: 1 pkt Gabapentin (Neurontin) 100 mg PO TID [facility] Last Admin: 02/14/19 09:17 Dose: 100 mg Acyclovir 600 mg/ Sodium (Chloride) 100 mls @ 100 mls/hr IVPB Q8 [facility]; Protocol Last Admin: 02/14/19 09:16 Dose: 100 mls/hr Ibuprofen (Motrin Tab) 800 mg PO Q8 PRN PRN Reason: fever >100.4 and pain Last Admin: 02/14/19 09:25 Dose: 800 mg - Labs Labs: 02/12/19 05:10 02/12/19 05:10 PT 12.1 Seconds (9.8-13.1) 02/08/19 13:34 INR 1.1 02/08/19 13:34 APTT 36.6 Seconds (25.6-37.1) 02/08/19 13:34 - Constitutional Appears: Well, Non-toxic, Chronically Ill - Head Exam Head Exam: ATRAUMATIC, NORMAL INSPECTION, NORMOCEPHALIC - Eye Exam Eye Exam: EOMI, Normal appearance, PERRL Pupil Exam: NORMAL ACCOMODATION, PERRL - ENT Exam ENT Exam: Mucous Membranes Moist, Normal Exam - Neck Exam Neck Exam: Full ROM, Normal Inspection. absent: Lymphadenopathy - Respiratory Exam Respiratory Exam: Clear to Ausculation Bilateral, NORMAL BREATHING PATTERN - Cardiovascular Exam Cardiovascular Exam: REGULAR RHYTHM, +S1, +S2. absent: Murmur - GI/Abdominal Exam GI & Abdominal Exam: Soft, Normal Bowel Sounds. absent: Tenderness - Extremities Exam Extremities Exam: Full ROM, Normal Capillary Refill, Normal Inspection. absent: Joint Swelling, Pedal Edema - Back Exam Back Exam: NORMAL INSPECTION - Neurological Exam Neurological Exam: Alert, Awake, CN II-XII Intact, Normal Gait, Oriented x3 - Psychiatric Exam Psychiatric exam: Normal Affect, Normal Mood - Skin Skin Exam: Dry, Intact, Normal Color, Warm Assessment and Plan (1) Facial cellulitis Status: Acute (2) Shingles outbreak Status: Acute (3) Alcohol abuse Status: Acute - Assessment and Plan (Free Text) Plan: shingles ad cellulitis improving
--- NOTE | 2019-02-14 14:04 | CP.PCM.PN ---
Subjective - Date & Time of Evaluation Date of Evaluation: 02/14/19 Time of Evaluation: 14:03 - Subjective Subjective: patient seen and examined at bedside. Interim events noted No complaints offered at this time cellulitis improving denies cp/sob/fever/chills. available diagnostic data reviewed Review of Systems All systems: reviewed and no additional remarkable complaints except mentioned above Objective Vital Signs Stable - Constitutional Appears: Non-toxic, No Acute Distress Head Exam: NORMAL INSPECTION Eye Exam: Normal appearance Respiratory Exam: NORMAL BREATHING PATTERN Cardiovascular Exam: +S1, +S2 GI & Abdominal Exam: Soft Neurological Exam: Alert, Awake Psychiatric exam: Normal Affect, Normal Mood Skin Exam: Normal Color, Warm Assessment and Plan monitor vitals monitor labs Cont meds Cont tx consultants appreciated input IV abx to be continued rest of plan as ordered Objective - Vital Signs/Intake and Output Vital Signs (last 24 hours): Temp Pulse Resp BP Pulse Ox 98 F 60 20 124/68 96 02/14/19 13:00 02/14/19 13:00 02/14/19 13:00 02/14/19 13:00 02/14/19 13:00 - Medications Medications: Current Medications Emollient Ointment (Vaseline Oint) 1 pkt TOP DAILY [facility] Last Admin: 02/14/19 09:17 Dose: 1 pkt Gabapentin (Neurontin) 100 mg PO TID [facility] Last Admin: 02/14/19 13:31 Dose: 100 mg Acyclovir 600 mg/ Sodium (Chloride) 100 mls @ 100 mls/hr IVPB Q8 [facility]; Protocol Last Admin: 02/14/19 09:16 Dose: 100 mls/hr Ibuprofen (Motrin Tab) 800 mg PO Q8 PRN PRN Reason: fever >100.4 and pain Last Admin: 02/14/19 09:25 Dose: 800 mg - Labs Labs: 02/12/19 05:10 02/12/19 05:10 PT 12.1 Seconds (9.8-13.1) 02/08/19 13:34 INR 1.1 02/08/19 13:34 APTT 36.6 Seconds (25.6-37.1) 02/08/19 13:34
[2019-02-14 16:24] VITALS: RESP 18
[2019-02-15 05:12] VITALS: O2SAT 97
[2019-02-15 08:15] VITALS: BP 115/74; PULSE 64; TEMP 97.8
[2019-02-15] MEDS: Petrolatum UD PAK TOP SCH (09:01)
--- NOTE | 2019-02-15 11:27 | CP.PCM.PN ---
Subjective - Date & Time of Evaluation Date of Evaluation: 02/15/19 Time of Evaluation: 08:00 - Subjective Subjective: cellulitis resolved shingles imoproved Objective - Vital Signs/Intake and Output Vital Signs (last 24 hours): Temp Pulse Resp BP Pulse Ox 97.8 F 64 18 115/74 97 02/15/19 08:00 02/15/19 08:00 02/15/19 08:00 02/15/19 08:00 02/15/19 08:00 - Medications Medications: Current Medications Emollient Ointment (Vaseline Oint) 1 pkt TOP DAILY [facility] Last Admin: 02/15/19 09:01 Dose: 1 pkt Gabapentin (Neurontin) 100 mg PO TID [facility] Last Admin: 02/15/19 09:01 Dose: 100 mg Ibuprofen (Motrin Tab) 800 mg PO Q8 PRN PRN Reason: fever >100.4 and pain Last Admin: 02/14/19 17:49 Dose: 800 mg - Labs Labs: 02/12/19 05:10 02/12/19 05:10 PT 12.1 Seconds (9.8-13.1) 02/08/19 13:34 INR 1.1 02/08/19 13:34 APTT 36.6 Seconds (25.6-37.1) 02/08/19 13:34 - Constitutional Appears: Non-toxic, Chronically Ill - Head Exam Head Exam: ATRAUMATIC, NORMAL INSPECTION, NORMOCEPHALIC - Eye Exam Eye Exam: EOMI, Normal appearance, PERRL Pupil Exam: NORMAL ACCOMODATION, PERRL - ENT Exam ENT Exam: Mucous Membranes Moist, Normal Exam - Neck Exam Neck Exam: Full ROM, Normal Inspection. absent: Lymphadenopathy - Respiratory Exam Respiratory Exam: Clear to Ausculation Bilateral, NORMAL BREATHING PATTERN - Cardiovascular Exam Cardiovascular Exam: REGULAR RHYTHM, +S1, +S2. absent: Murmur - GI/Abdominal Exam GI & Abdominal Exam: Soft, Normal Bowel Sounds. absent: Tenderness - Rectal Exam Rectal Exam: Deferred - Exam Exam: NORMAL INSPECTION - Extremities Exam Extremities Exam: Full ROM, Normal Capillary Refill, Normal Inspection. absent: Joint Swelling, Pedal Edema - Back Exam Back Exam: NORMAL INSPECTION - Neurological Exam Neurological Exam: Alert, Awake, CN II-XII Intact, Normal Gait, Oriented x3 - Psychiatric Exam Psychiatric exam: Normal Affect, Normal Mood - Skin Skin Exam: Dry, Intact, Normal Color, Warm Assessment and Plan (1) Facial cellulitis Status: Acute (2) Shingles outbreak Status: Acute (3) Alcohol abuse Status: Acute - Assessment and Plan (Free Text) Assessment: d/c home on po rx
--- NOTE | 2019-02-15 11:36 | CP.PCM.PCO ---
Assessment & Plan - Assessment and Plan (Free Text) Assessment: pt . doing well, denies h/a, pain, reports mild facial pruritis facial erythema, rash improved, no lesions noted pt. cleared for d/c to home today on Acyclovir 800 mg po q8 x 5 days per recommendation cont. neurontin, rx provided f/u with pmd in 1 week
--- NOTE | 2019-02-15 13:09 | CP.PCM.DIS ---
Provider - Provider Date of Admission: 02/09/19 13:34 Attending physician: Sea Valles MD Consults: 02/08/19 20:23 Infectious Disease Consult Routine Comment: Consulting Provider: Reymundo Barr Consulting Physician: Reymundo Barr Reason for Consult: face cellulitis Time Spent in preparation of Discharge (in minutes): 30 Diagnosis - Discharge Diagnosis (1) Facial cellulitis Status: Acute (2) Shingles outbreak Status: Acute Hospital Course - Lab Results Lab Results: Micro Results 02/08/19 18:10 Blood-Venous Blood Culture - Final NO GROWTH AFTER 5 DAYS 02/08/19 18:10 Blood-Venous Gram Stain - Final TEST NOT PERFORMED 02/08/19 17:19 Blood-Venous Blood Culture - Final NO GROWTH AFTER 5 DAYS 02/08/19 17:19 Blood-Venous Gram Stain - Final TEST NOT PERFORMED 02/08/19 19:35 Urine Random Urine Culture - Final No Growth (<1,000 CFU/ML) Most Recent Lab Values WBC 4.6 K/uL (4.8-10.8) L 02/12/19 05:10 RBC 4.35 Mil/uL (4.40-5.90) L 02/12/19 05:10 Hgb 13.0 g/dL (12.0-18.0) 02/12/19 05:10 Hct 39.1 % (35.0-51.0) 02/12/19 05:10 MCV 89.9 fl (80.0-94.0) 02/12/19 05:10 MCH 29.8 pg (27.0-31.0) 02/12/19 05:10 MCHC 33.2 g/dL (33.0-37.0) 02/12/19 05:10 RDW 13.8 % (11.5-14.5) 02/12/19 05:10 Plt Count 187 K/uL (130-400) 02/12/19 05:10 MPV 8.4 fl (7.2-11.7) 02/08/19 13:34 Neut % (Auto) 90.1 % (50.0-75.0) H 02/08/19 13:34 Lymph % (Auto) 5.3 % (20.0-40.0) L 02/08/19 13:34 [place] % (Auto) 4.1 % (0.0-10.0) 02/08/19 13:34 Eos % (Auto) 0.1 % (0.0-4.0) 02/08/19 13:34 Baso % (Auto) 0.4 % (0.0-2.0) 02/08/19 13:34 Neut # (Auto) 9.9 K/uL (1.8-7.0) H 02/08/19 13:34 Lymph # (Auto) 0.6 K/uL (1.0-4.3) L 02/08/19 13:34 [place] # (Auto) 0.4 K/uL (0.0-0.8) 02/08/19 13:34 Eos # (Auto) 0.0 K/uL (0.0-0.7) 02/08/19 13:34 Baso # (Auto) 0.0 K/uL (0.0-0.2) 02/08/19 13:34 Neutrophils % (Manual) 85 % (42-75) H 02/08/19 13:34 Band Neutrophils % 3 % (0-2) H 02/08/19 13:34 Lymphocytes % (Manual) 7 % (20-50) L 02/08/19 13:34 Monocytes % (Manual) 5 % (0-10) 02/08/19 13:34 Platelet Estimate Normal (NORMAL) 02/08/19 13:34 RBC Morphology Normal (NORMAL) 02/08/19 13:34 ESR 81 mm/hr (0-20) H 02/09/19 04:25 PT 12.1 Seconds (9.8-13.1) 02/08/19 13:34 INR 1.1 02/08/19 13:34 APTT 36.6 Seconds (25.6-37.1) 02/08/19 13:34 pO2 55 mm/Hg (30-55) 02/08/19 17:36 VBG pH 7.45 (7.32-7.43) H 02/08/19 17:36 VBG pCO2 33 mmHg (40-60) L 02/08/19 17:36 VBG HCO3 24.4 mmol/L 02/08/19 17:36 VBG Total CO2 23.9 mmol/L (22-28) 02/08/19 17:36 VBG O2 Sat (Calc) 95.0 % (40-65) H 02/08/19 17:36 VBG Base Excess -0.4 mmol/L (0.0-2.0) L 02/08/19 17:36 VBG Potassium 3.8 mmol/L (3.6-5.2) 02/08/19 17:36 Sodium 131.0 mmol/L (132-148) L 02/08/19 17:36 Chloride 102.0 mmol/L (98-107) 02/08/19 17:36 Glucose 122 mg/dL (75-110) H 02/08/19 17:36 Lactate 0.8 mmol/L (0.7-2.1) 02/08/19 17:36 FiO2 21.0 % 02/08/19 17:36 Sodium 137 mmol/l (132-148) 02/12/19 05:10 Potassium 3.5 MMOL/L (3.6-5.0) L 02/12/19 05:10 Chloride 100 mmol/L (98-107) 02/12/19 05:10 Carbon Dioxide 29 mmol/L (22-30) 02/12/19 05:10 Anion Gap 12 (10-20) 02/12/19 05:10 BUN 11 mg/dl (9-20) 02/12/19 05:10 Creatinine 0.6 mg/dl (0.8-1.5) L 02/12/19 05:10 Est GFR ( Amer) > 60 02/12/19 05:10 Est GFR (Non-Af Amer) > 60 02/12/19 05:10 Random Glucose 104 mg/dL (75-110) 02/12/19 05:10 Hemoglobin A1c 5.8 % (4.2-6.5) 02/10/19 08:10 Calcium 8.8 mg/dL (8.4-10.2) 02/12/19 05:10 Phosphorus 3.3 mg/dl (2.5-4.5) 02/08/19 13:34 Magnesium 2.0 MG/DL (1.6-2.3) 02/08/19 13:34 Total Bilirubin 1.5 mg/dl (0.2-1.3) H 02/08/19 13:34 AST 35 U/L (17-59) 02/08/19 13:34 ALT 12 U/L (21-72) L D 02/08/19 13:34 Alkaline Phosphatase 94 U/L (38-126) 02/08/19 13:34 Total Protein 8.5 G/DL (6.3-8.2) H 02/08/19 13:34 Albumin 4.5 g/dL (3.5-5.0) 02/08/19 13:34 Globulin 4.1 gm/dL (2.2-3.9) H 02/08/19 13:34 Albumin/Globulin Ratio 1.1 (1.0-2.1) 02/08/19 13:34 Lipase 77 U/L (23-300) 02/08/19 13:34 Venous Blood Potassium 3.8 mmol/L (3.6-5.2) 02/08/19 17:36 Urine Color Yellow (YELLOW) 02/08/19 19:35 Urine Clarity Slight-cloudy (Clear) 02/08/19 19:35 Urine pH 6.0 (5.0-8.0) 02/08/19 19:35 Ur Specific [place] >= 1.030 (1.003-1.030) 02/08/19 19:35 Urine Protein >=300 mg/dL (NEGATIVE) 02/08/19 19:35 Urine Glucose (UA) Negative mg/dL (NEGATIVE) 02/08/19 19:35 Urine Ketones 15 mg/dL (NEGATIVE) 02/08/19 19:35 Urine Blood Moderate (NEGATIVE) 02/08/19 19:35 Urine Nitrate Negative (NEGATIVE) 02/08/19 19:35 Urine Bilirubin Small (NEGATIVE) 02/08/19 19:35 Urine Urobilinogen 1.0 mg/dL (0.2-1.0) 02/08/19 19:35 Ur Leukocyte Esterase Negative [place]/uL (Negative) 02/08/19 19:35 Urine RBC (Auto) 15 /hpf (0-3) H 02/08/19 19:35 Urine Microscopic WBC 3 /hpf (0-5) 02/08/19 19:35 Urine Bacteria Rare (<OCC) 02/08/19 19:35 Vancomycin Trough 13.5 ug/mL (5.0-10.0) H 02/13/19 06:00 Salicylates < 1.0 mg/dl 02/08/19 13:34 Acetaminophen < 10.0 ug/ml (10.0-30.0) L 02/08/19 17:34 Alcohol, Quantitative < 10 mg/dl (0-10) 02/08/19 13:34 HIV 1&2 Antibody Screen Negative (NEGATIVE) 02/11/19 08:55 - Hospital Course Hospital Course: 58 y/o male admitted through the ER last night for facial pain for 3 days and noted face to be very erythematous holli on the left side of the face. Diagnosed with shingles and cellulitis. ID consulted. IV abx treatment with good success. Patient improved and to be discharged on PO antivirals and follow up with PMD in 1 wk Discharge Exam - Head Exam Head Exam: ATRAUMATIC, NORMAL INSPECTION, NORMOCEPHALIC - Eye Exam Eye Exam: Normal appearance - Respiratory Exam Respiratory Exam: NORMAL BREATHING PATTERN - Cardiovascular Exam Cardiovascular Exam: +S1, +S2 - GI/Abdominal Exam GI & Abdominal Exam: Unremarkable - Neurological Exam Neurological exam: Alert, Oriented x3 - Psychiatric Exam Psychiatric exam: Normal Affect, Normal Mood - Skin Skin Exam: Normal Color, Warm Discharge Plan - Discharge Medications Prescriptions: Acyclovir [Zovirax] 800 mg PO Q8 #15 tablet Gabapentin [Neurontin] 100 mg PO TID #12 cap - Follow Up Plan Condition: STABLE Disposition: HOME/ ROUTINE Instructions: Shingles (DC), Cellulitis (Skin Infection), Adult (DC) Additional Instructions: por favor diana tonja con el Dr.Arias pittman 1 semana Referrals: Oni Jay MD [Medical Doctor] - Sea Valles MD [Staff Provider] -
== END 2019-02-15 15:30 | DRG 278 ==
LOC: H.ER 12:30 → H.ERHOLD 17:06 → H.TEL 19:34 → OBSVTOIN 02-09 13:34 → H.TEL 02-09 16:58
PROVIDERS: ADMIT Family Medicine; ATTEND Family Medicine
DX: L03.211 Cellulitis of face (principal); Z85.118 Personal history of other malignant neoplasm of bronchus and lung; F17.210 Nicotine dependence, cigarettes, uncomplicated; R00.0 Tachycardia, unspecified; B02.9 Zoster without complications; F10.10 Alcohol abuse, uncomplicated